=== PATIENT | female | born 1965 | race Caucasian/White ===

== ENCOUNTER → 2017-05-19 | Day surgery (SDC) | payer BC ==
[~2017-05-19] MED LIST: BUPIVACAINE HCL 0.5% INJ 30 ML VIAL INJ ONE; FENTANYL CITRATE/PF 100MCG/2 ML INJ ONE; IOPAMIDOL 610MG/1ML 300 MG/ML VIAL IV ONE; JINTELI 1 MG-51 EACH PO; LEXAPRO10 MG PO; LIDOCAINE HCL 1% 30ML-PF VIAL ONE; LIDOCAINE HCL 2% LOCAL INJ 5 ML SDV VIAL INJ ONE; MIDAZOLAM HCL 2 MG/2 ML VIAL ONE; PROPOFOL IV EMULSION 10 MG/ML 20 ML VIAL ONE; TRIAMCINOLONE ACET 40 MG/ML VIAL ONE; ULTRAM 50MG50 MG PO
--- NOTE | 2017-05-19 15:56 | Operative Report ---
DATE OF PROCEDURE: May 19, 2017 TIGHTENER: None. PREOPERATIVE DIAGNOSIS: Osteoarthritis, left hip. POSTOPERATIVE DIAGNOSIS: Osteoarthritis, left hip. PROCEDURE: Left hip fluoroscopic-guided injection. INDICATIONS: The patient is a 52-year-old lady who has long-standing arthritis of her left hip as well as lower lumbar spondylosis with nerve root entrapment. We have discussed the findings and options. We would like to determine which area is the source of her primary discomfort. The risks and benefits of a fluoroscopic-guided left hip injection have been explained. She states she understands and wishes to proceed. DESCRIPTION OF PROCEDURE: The patient was brought to the procedure room and place and given a MAC anesthetic. Her left hip was prepped and draped in a sterile manner. A preoperative time out was performed. A C-arm image intensifier was used to assist in placing a spinal needle into the hip joint. A small amount of synovial fluid was aspirated. Positioning of the needle was further confirmed with a small injection of radiopaque dye. A mixture of 10 mL of half percent Marcaine and 40 mg of Depo-Medrol were then injected into the hip. The needle was retrieved and a Band-Aid was applied. The patient was transported to the recovery room in stable condition. There was no blood loss and all needle and sponge counts were correct. Job#: [id number]
== END | disposition home or self-care (01) ==
LOC: OR 08:35
PROVIDERS: ATTEND Specialist
DX: M16.12 Unilateral primary osteoarthritis, left hip (principal); M47.16 Other spondylosis with myelopathy, lumbar region; K25.9 Gastric ulcer, unspecified as acute or chronic, without hemorrhage or perforation; F17.210 Nicotine dependence, cigarettes, uncomplicated; Z01.810 Encounter for preprocedural cardiovascular examination
CPT/HCPCS: 20610; 76000; 93005; J2001 ×2; J2250; J3301; Q9967

== ENCOUNTER 2017-07-20 07:38 | Inpatient (IN) | payer BC ==
[2017-07-17 10:37] LABS: BASOPHILS % 0.4 % (0.0-1.0); EOSINOPHILS # (AUTO) 0.1 (0.0-0.4); EOSINOPHILS % 1.2 % (0.0-6.0); HEMATOCRIT 45.1 % (34.2-44.1); LYMPHOCYTES # (AUTO) 2.5 (1.0-3.2); LYMPHOCYTES % 26.3 % (18.0-39.1); MEAN CORPUSCULAR HEMOGLOBIN 32.1 pg (28-32); MEAN CORPUSCULAR HGB CONC 33.3 g/dL (31-35); MEAN CORPUSCULAR VOLUME 96.6 fL (81-99); MONOCYTES # (AUTO) 0.9 (0.2-0.8); MONOCYTES % 9.5 % (4.4-11.3); NEUTROPHILS # (AUTO) 5.9 (2.1-6.9); NEUTROPHILS % 62.4 % (38.7-80.0); PLATELET COUNT 261 x10e3/uL (140-360); RED BLOOD COUNT 4.67 x10e6/uL (3.6-5.1); RED CELL DISTRIBUTION WIDTH 13.4 % (11.7-14.4)
--- NOTE | 2017-07-17 11:14 | Diagnostic Imaging Report ---
PROCEDURE: Frontal and lateral views of the chest. COMPARISON: None. INDICATIONS: PRE OPERATIVE CHEST X-RAY FOR HIP SURGERY FINDINGS: Lines/tubes: None. Lungs: The lungs are well inflated and clear. There is no evidence of pneumonia or pulmonary edema. Pleura: There is no pleural effusion or pneumothorax. Heart and mediastinum: The heart and the mediastinum are normal. Bones: No acute bony abnormality. Cervical spine fusion hardware. IMPRESSION: 1. No acute cardiopulmonary disease. Dictated by: Humza Demarco M.D. on 07/17/2017 at 11:13 Electronically approved by: Humza Demarco M.D. on 07/17/2017 at 11:13
[~2017-07-20] VITALS: Ht 152.4 cm; Wt 49.9 kg
[~2017-07-20 07:38] MED LIST changes: -BUPIVACAINE HCL 0.5% INJ 30 ML VIAL INJ ONE; +CEFAZOLIN SOD 2 GM/D5W 50ML 50 ML IV ONE; +CELECOXIB 200 MG CAP ONE; +DEXAMETHASONE SOD PHOS 10 MG/1 ML VIAL ONE; -FENTANYL CITRATE/PF 100MCG/2 ML INJ ONE; +GABAPENTIN 300 MG CAP ONE; -IOPAMIDOL 610MG/1ML 300 MG/ML VIAL IV ONE; -LIDOCAINE HCL 1% 30ML-PF VIAL ONE; -LIDOCAINE HCL 2% LOCAL INJ 5 ML SDV VIAL INJ ONE; -MIDAZOLAM HCL 2 MG/2 ML VIAL ONE; -PROPOFOL IV EMULSION 10 MG/ML 20 ML VIAL ONE; +ROPIVACAINE 246.25 MG, EPINEPHRINE HCL 1:1000 0.5 MG, CLONIDINE HCL 0.08 MG, KETOROLAC ... INJ ONE; -TRIAMCINOLONE ACET 40 MG/ML VIAL ONE
--- OUTSIDE RECORDS SUMMARY | 2017-07-20 07:40 | XMS REPORT ---
Author Author [facility] Address Unknown Phone Unavailable Care Team Providers Care Ethnology Teacher Name Role Phone ZARINA MENDIOLA Unavailable Unavailable Problems This patient has no known problems. Allergies, Adverse Reactions, Alerts This patient has no known allergies or adverse reactions. Medications This patient has no known medications. Results Test Description Test Time Test Comments Text Results Atomic Results Result Comments CHEST 2 VIEWS [place] [address] Patient Name: YAKELIN BUTT MR #: [id number] : 1965 Age/Sex: 52/F Req #: [id number] Adm Physician: Ordered by: ZARINA MENDIOLA MD Report #: [id number] Location: OR Room/Bed: Procedure: [id number] DX/CHEST 2 VIEWS Exam Date: 07/17/17 Exam Time: 1040 REPORT STATUS: Signed PROCEDURE: Frontal and lateral views of the chest. COMPARISON: None. INDICATIONS: PRE OPERATIVE CHEST X- RAY FOR HIP SURGERY FINDINGS: Lines/tubes: None. Lungs: The lungs are well inflated and clear. There is no evidence of pneumonia or pulmonary edema. Pleura: There is no pleural effusion or pneumothorax. Heart and mediastinum: The heart and the mediastinum are normal. Bones: No acute bony abnormality. Cervical spine fusion hardware. IMPRESSION: 1. No acute cardiopulmonary disease. Dictated by: Humza Demarco M.D. on 07/17/2017 at 11:13 Electronically approved by: Humza Demarco M.D. on 07/17/2017 at 11:13 Dictated By: HUMZA DEMARCO MD [id number] Transcribed By: EDDIE on 07/17/17 1113 COPY TO: ZARINA MENDIOLA MD
[2017-07-20] MEDS ORDERED: BUPIVACAINE 7.5MG/ML /DEXTROSE 82.5MG/ML 2 ML AMP INJ ONE (07:50)
[2017-07-20] MEDS ORDERED: TRANEXAMIC ACID 1,000 MG/10 ML ML ONE (08:13)
[2017-07-20] MEDS ORDERED: BACITRACIN 50,000 UNIT VIAL ONE (08:13)
[2017-07-20] MEDS ORDERED: HYDROGEN PEROXIDE 120 ML BTL ONE (08:13)
[2017-07-20] MEDS ORDERED: MUPIROCIN 2% OINT 22 GM TUBE ONE (08:13)
[2017-07-20] MEDS ORDERED: SODIUM CHLORIDE 0.9% 1000ML 1,000 ML IV SCH (10:20)
[2017-07-20] MEDS ORDERED: DIPHENHYDRAMINE HCL INJ 50 MG/ML VIAL IM/IV PRN (10:30)
[2017-07-20] MEDS ORDERED: ONDANSETRON HCL INJ 2 MG/ML VIAL IV PRN (10:30)
[2017-07-20] MEDS ORDERED: DOCUSATE SODIUM 100 MG CAP PO PRN (10:30)
[2017-07-20] MEDS ORDERED: KETOROLAC TROMETHAMINE 30 MG/ML VIAL IV PRN (10:30)
[2017-07-20] MEDS ORDERED: ACETAMINOPHEN 650 MG SUPP PR PRN (10:30)
[2017-07-20] MEDS ORDERED: PROMETHAZINE HCL (IM) 25 MG/ML VIAL IM PRN (10:30)
--- NOTE | 2017-07-20 11:27 | Diagnostic Imaging Report ---
PROCEDURE:X-RAY PELVIS, AP VIEW COMPARISON:None. INDICATIONS:POST-OP ON LEFT HIP FINDINGS: Post-operative changes related to left hip arthroplasty including soft tissue swelling, subcutaneous emphysema, and overlying skin bernie. No evidence of hardware fracture. There are no fractures, dislocations, lytic or blastic lesions. The bones are well-mineralized. CONCLUSION: Left hip arthroplasty without complication. Dictated by: Galo Portillo M.D. on 07/20/2017 at 11:27 Electronically approved by: Galo Portillo M.D. on 07/20/2017 at 11:27
[2017-07-20] MEDS: ACETAMINOPHEN 1000 MG/100 ML IV SCH ×2 (12:00→15:56)
--- NOTE | 2017-07-20 13:54 | Operative Report ---
DATE OF PROCEDURE: July 20, 2017 STATION WORKER: Cesar Peña PA-C The patient was brought to the operating room for induction of anesthesia. Throughout this case, my PA's assistance was necessary for retraction of soft tissue and positioning of the extremity. This allows for efficient and technically successful execution of the operation and is considered medically necessary. PREOPERATIVE DIAGNOSIS: Osteoarthritis left hip. POSTOPERATIVE DIAGNOSIS: Osteoarthritis left hip. PROCEDURE: Left total hip arthroplasty. INDICATIONS: The patient is a 52-year-old lady who has advanced osteoarthritis of her left hip. She has failed conservative management and would like to proceed with a left total hip replacement. The risks and benefits of the procedure have been discussed at length. All of her questions been answered. She states she understands and wishes to proceed. DESCRIPTION OF PROCEDURE: The patient was brought to the operating room and placed under spinal anesthetic. She was positioned in the right lateral decubitus position. Her left hip was prepped and draped in a sterile manner. A preoperative time out was performed. A limited incision posterior approach was made to the left hip. Hemostasis was obtained with electrocautery. Care was taken to avoid any injury to the sciatic nerve. A portion of the short external rotators and the posterior capsule were released. The hip was dislocated, and an oscillating saw was used to resect the femoral head. Complete loss of articular cartilage was noted. Acetabular retractors were placed, and the true floor of the acetabulum was established with a 44 mm reamer. The socket was then sequentially reamed up to 51 mm. Hemispherical bleeding cancellous bone was accomplished. The hip was thoroughly irrigated with a shower-tip pulsatile lavage. A [employer] OsseoTi 52 mm outer diameter socket was then impacted into place. Fixation was augmented with a single 20 mm screw placed into the ilium. A highly crosslinked polyethylene liner was then seated into place. Care was taken to make sure that there was no evidence of soft-tissue interposition. A portion of a 100 mL premixed pericapsular YAHIR injection was placed into the deep soft tissue. The socket was packed with a moistly soaked lap sponge, and attention was directed towards the proximal femur. A box-cutting osteotome and taper pin reamer were used to establish entry to the femoral canal. The [employer] Taperloc broaches were trialed. A number 9 standard stem had good fill and stability in the canal. Trial reductions were performed. I had elected to use a 32 mm inner diameter liner to increase the polyethylene thickness. A standard 32 mm head was felt to provide appropriate soft-tissue balancing, range of motion and stability. The trial implants were removed. The hip was further irrigated with a pulsatile lavage. The implants were seated, and a final reduction was performed. The remainder of the pericapsular injection was placed into the more superficial soft tissue. The posterior capsule was carefully closed. The piriformis had been preserved and had never been released. The tensor fascia was then closed with interrupted number 2 Ethibond. The skin was closed with subcuticular Vicryl and bernie. She was returned to the supine position and transported to the recovery room in stable condition. Blood loss was approximately 75 mL, and all needle and sponge counts were correct. Job#: [id number] KEVIN
[2017-07-20] MEDS ORDERED: CEFAZOLIN SOD 1 GM/NS 50ML 50 ML IV SCH (14:00)
[2017-07-20 14:07] VITALS: BP 105/50
[2017-07-20] MEDS ORDERED: MIDAZOLAM HCL 2 MG/2 ML VIAL ONE (14:53)
[2017-07-20] MEDS ORDERED: FENTANYL CITRATE/PF 100MCG/2 ML INJ ONE (14:53)
[2017-07-20] MEDS ORDERED: LIDOCAINE HCL 2% LOCAL INJ 5 ML SDV VIAL INJ ONE (15:14)
[2017-07-20] MEDS ORDERED: ONDANSETRON HCL INJ 2 MG/ML VIAL ONE (15:14)
[2017-07-20] MEDS ORDERED: PROPOFOL IV EMULSION 10 MG/ML 20 ML VIAL ONE (15:14)
[2017-07-20] MEDS ORDERED: DEXAMETHASONE SOD PHOS INJ 4 MG/ML VIAL ONE (15:14)
[2017-07-20] MEDS: ASPIRIN 325 MG TAB PO SCH (16:00)
[2017-07-20] MEDS: CELECOXIB 100 MG CAP PO SCH (16:00)
[2017-07-20 16:56] VITALS: BP 92/55
[2017-07-20] MEDS: CEFAZOLIN SOD 1 GM VIAL IV SCH (17:00)
[2017-07-20] MEDS: HYDROCODONE/APAP 5MG-325MG TAB PO PRN ×2 (17:50→21:46)
[2017-07-20 20:00] VITALS: BP 99/55
[2017-07-20] MEDS ORDERED: ZOLPIDEM TARTRATE 5 MG TAB PO PRN (21:00)
[2017-07-21] VITALS: BP 113/58
[2017-07-21] MEDS: CEFAZOLIN SOD 1 GM VIAL IV SCH ×2 (00:51→09:30)
[2017-07-21] MEDS: HYDROCODONE/APAP 7.5MG-325MG 1 EA TAB PO PRN ×2 (05:45→09:55)
[2017-07-21] MEDS: ACETAMINOPHEN 1000 MG/100 ML IV SCH ×2 (05:55)
[2017-07-21 06:48] LABS: HEMATOCRIT 35.5 % (34.2-44.1)
[2017-07-21 06:55] LABS: HEMOGLOBIN 12.1 g/dL (12.0-16.0)
[2017-07-21 08:00] VITALS: BP 102/58
[2017-07-21] MEDS: CELECOXIB 100 MG CAP PO SCH (09:30)
[2017-07-21] MEDS: ASPIRIN 325 MG TAB PO SCH (09:30)
[2017-07-21] MEDS ORDERED: ASPIRIN325 MG PO (10:17)
[2017-07-21] MEDS ORDERED: ACETAMINOPHEN 1000 MG/100 ML IV PRN (10:30)
[2017-07-21 12:00] VITALS: BP 97/51
[2017-07-21] MEDS ORDERED: CELECOXIB 200 MG CAP PO SCH (17:00)
== END 2017-07-21 13:18 | disposition home health service (06) | DRG 470 ==
LOC: OR 07:38 → MED/SURG 11:31
PROVIDERS: ADMIT Specialist; ATTEND Specialist
PROC: 0SRB0JZ Replacement of Left Hip Joint with Synthetic Substitute, Open Approach (ICD-10-PCS; principal; 2017-07-20 08:55)
DX: M16.12 Unilateral primary osteoarthritis, left hip (principal); M47.16 Other spondylosis with myelopathy, lumbar region; K21.9 Gastro-esophageal reflux disease without esophagitis; Z79.82 Long term (current) use of aspirin
CPT/HCPCS: 36415; 71046; 72170; 85014; 85018; 85025; 86850; 86900; 86920; J0171; J0690; J1100; J1885; J2001; J2250; J2405; J2795

== ENCOUNTER 2017-12-17 10:45 | Outpatient (RCR) | payer BC ==
[~2017-12-17 10:45] MED LIST changes: +ASPIRIN325 MG PO; -CEFAZOLIN SOD 2 GM/D5W 50ML 50 ML IV ONE; -CELECOXIB 200 MG CAP ONE; -DEXAMETHASONE SOD PHOS 10 MG/1 ML VIAL ONE; -GABAPENTIN 300 MG CAP ONE; -ROPIVACAINE 246.25 MG, EPINEPHRINE HCL 1:1000 0.5 MG, CLONIDINE HCL 0.08 MG, KETOROLAC ... INJ ONE
== END 2017-12-22 ==
LOC: PT 10:45
PROVIDERS: ATTEND Specialist
DX: M75.42 Impingement syndrome of left shoulder (principal)

== ENCOUNTER 2018-01-21 11:00 | Outpatient (RCR) | payer BC | END 2018-01-22 | LOC: PT 11:00 | PROVIDERS: ATTEND Specialist | DX: M75.42 Impingement syndrome of left shoulder (principal); M25.512 Pain in left shoulder; M62.81 Muscle weakness (generalized) | CPT/HCPCS: 97139 ==

== ENCOUNTER 2018-01-28 10:59 | Outpatient (RCR) | payer BC | END 2018-02-21 | LOC: PT 10:59 | PROVIDERS: ATTEND Specialist | DX: M75.42 Impingement syndrome of left shoulder (principal); M62.81 Muscle weakness (generalized); M25.512 Pain in left shoulder ==

== ENCOUNTER 2018-03-25 08:02 | Observation (INO) | payer BC ==
[2018-03-24 14:13] LABS: BASOPHILS % 0.4 % (0.0-1.0); EOSINOPHILS # (AUTO) 0.2 (0.0-0.4); EOSINOPHILS % 1.5 % (0.0-6.0); HEMATOCRIT 45.7 % (34.2-44.1); HEMOGLOBIN 15.2 g/dL (12.0-16.0); LYMPHOCYTES # (AUTO) 2.9 (1.0-3.2); LYMPHOCYTES % 26.1 % (18.0-39.1); MEAN CORPUSCULAR HEMOGLOBIN 31.3 pg (28-32); MEAN CORPUSCULAR HGB CONC 33.3 g/dL (31-35); MONOCYTES # (AUTO) 1.3 (0.2-0.8); MONOCYTES % 11.3 % (4.4-11.3); NEUTROPHILS # (AUTO) 6.7 (2.1-6.9); NEUTROPHILS % 60.5 % (38.7-80.0); PLATELET COUNT 244 x10e3/uL (140-360); RED BLOOD COUNT 4.86 x10e6/uL (3.6-5.1); RED CELL DISTRIBUTION WIDTH 12.2 % (11.7-14.4)
[2018-03-24 14:27] LABS: INR 0.84; PARTIAL THROMBOPLASTIN TIME 25.1 seconds (23.8-35.5); PROTHROMBIN TIME 12.3 seconds (11.9-14.5)
[2018-03-24 14:35] LABS: ANION GAP 10.8 mmol/L (8-16); BLOOD UREA NITROGEN 12 mg/dL (7-26); BUN/CREATININE RATIO 15 (6-25); CALCIUM 10.1 mg/dL (8.4-10.2); CARBON DIOXIDE 32 mmol/L (22-29); CHLORIDE 101 mmol/L (98-107); CREATININE, SERUM 0.78 mg/dL (0.57-1.11); EST GLOMERULAR FILTRATION RATE > 60 ML/MIN (60-); GLUCOSE 107 mg/dL (74-118); POTASSIUM 3.8 mmol/L (3.5-5.1); SODIUM 140 mmol/L (136-145)
--- NOTE | 2018-03-24 15:05 | Diagnostic Imaging Report ---
EXAMINATION: PA and lateral views of the chest. COMPARISON: None CLINICAL HISTORY: Preoperative study for lumbar spine surgery DISCUSSION: Lungs are well-inflated. No focal consolidation, pleural effusion, or pneumothorax. Cardiomediastinal contour and pulmonary vasculature are within normal limits. No acute osseous abnormality. Cervical spine fusion hardware partially visualized. IMPRESSION: No acute cardiopulmonary abnormalities. Signed by: Dr. Timi Allen M.D. on 03/24/2018 3:02 PM
[~2018-03-25] VITALS: Ht 152.4 cm; Wt 70.5 kg
[2018-03-25] VITALS (7 sets, daily range): BP systolic 113–130; BP diastolic 65–79
[~2018-03-25 08:02] MED LIST changes: +ACETAMINOPHEN 1000 MG/100 ML 100 ML IV ONE; +BACITRACIN 50,000 UNIT VIAL ONE; +BUPIVACAINE 0.5%/EPI 30 ML SDV INJ ONE; +GELATIN SPONGE 12-7MM ONE; +LIDOCAINE HCL (LTA) 4 ML SOLN ONE; +METAXALONE800 MG PO; +THROMBIN FOR SOLN 5,000 UNIT VIAL ONE
[2018-03-25] MEDS ORDERED: CEFAZOLIN SOD 1 GM VIAL ONE (08:35)
[2018-03-25] MEDS ORDERED: CARISOPRODOL 350 MG TAB PO PRN (11:30)
[2018-03-25] MEDS ORDERED: MORPHINE SULFATE 5 MG/ML VIAL IM PRN (11:30)
[2018-03-25] MEDS ORDERED: ZOLPIDEM TARTRATE 5 MG TAB PO PRN (11:30)
[2018-03-25] MEDS ORDERED: OXYCODONE/ACETAMINOPHEN 5-325 1 EACH TABLET PO PRN (11:30)
[2018-03-25] MEDS ORDERED: MAGNESIUM/ALUMINUM/SIMETHICONE 30 ML UDC PO PRN (11:30)
[2018-03-25] MEDS ORDERED: PROMETHAZINE HCL (IM) 25 MG/ML VIAL IM PRN (11:30)
[2018-03-25] MEDS ORDERED: CEPACOL SORE THROAT LOZENGES PO PRN (11:30)
[2018-03-25] MEDS ORDERED: ONDANSETRON HCL INJ 2 MG/ML VIAL IV PRN (11:30)
[2018-03-25] MEDS ORDERED: ACETAMINOPHEN 325 MG TAB PO PRN (11:30)
--- NOTE | 2018-03-25 11:58 | Diagnostic Imaging Report ---
EXAM: lumbar spine, 2 view, AP and supine lateral COMPARISON: None FINDINGS: Two wires or markers are noted overlying the L4 vertebral body level. Vertebral body heights are preserved without evidence of fracture. Alignment is unremarkable. Moderate degenerative disc changes and severe facet degenerative changes, most pronounced at L4-L5 and L5-S1. Likely bony neural foraminal stenosis at L5-S1. Partially seen hip arthroplasty changes. IMPRESSION: Two wires or markers overlie the L4 vertebral body level. Moderate degenerative disc and severe facet degenerative changes of the lumbar spine as above. Signed by: Dr. Ehsan Ahn MD on 03/25/2018 11:55 AM
--- NOTE | 2018-03-25 11:59 | Diagnostic Imaging Report ---
EXAM: lumbar spine, 2 view, AP and supine lateral COMPARISON: Lumbar spine radiographs 03/25/18 at 915 AM. FINDINGS: A single marker is seen overlying the posterior aspect of the L4 posterior elements. Vertebral body heights are preserved without evidence of fracture. Alignment is unremarkable. Moderate degenerative disc changes and severe facet degenerative changes, most pronounced at L4-L5 and L5-S1. Likely bony neural foraminal stenosis at L5-S1. Partially seen hip arthroplasty changes. IMPRESSION: Marker posterior to the L4 posterior elements. Moderate degenerative disc and severe facet degenerative changes of the lumbar spine as above. Signed by: Dr. Ehsan Ahn MD on 03/25/2018 11:56 AM
--- NOTE | 2018-03-25 13:42 | Operative Report ---
DATE OF PROCEDURE: March 25, 2018 PREOPERATIVE DIAGNOSIS: Left L3-4 and L4-5 lateral recess stenosis with radiculopathy, M48.062. POSTOPERATIVE DIAGNOSIS: Left L3-4 and L4-5 lateral recess stenosis with radiculopathy, M48.062. PROCEDURES 1. Left L3-4 laminotomy, medial facetectomy, and microsurgical lateral recess decompression, 40168. 2. Left L4-5 laminotomy, medial facetectomy and microsurgical lateral recess decompression, 37732. ANESTHESIA: General. INDICATIONS: Patient is a 53-year-old woman who presents with intractable radicular pain in the left leg and was found to have lateral recess stenosis due to facet and ligamentous hypertrophy on the left side at L3-4 and L4-5. The patient was taken to the operating room for microsurgical decompression of these 2 segments. PROCEDURE: After the induction of general anesthesia, the patient was placed on the operating table in prone position over a Jean Claude frame. Lumbar region was prepped and draped in sterile fashion. The fluoroscopic C-arm was positioned in cross-table lateral orientation. A preoperative x-ray was obtained. The lumbar region was prepped and draped in a sterile fashion. A small midline incision was created. Lumbar fascia was opened to the left of the midline, and a subperiosteal dissection was carried out to expose the left side of the L3, L4 and L5 laminae and the medial aspect of the facet joints. The ligamentum flavum was resected. A high-speed drill equipped with a esha bur was used to drill the inferior aspect of the lamina of L3, the medial rim of the L3-4 facet joint and the superior rim of the lamina of L4. The markedly hypertrophic ligamentum flavum was resected. The dural sac and the L4 traversing nerve roots were fully exposed and decompressed. Attention was directed to the L4-5 segment. In a similar fashion, the high-speed drill was used to drill the inferior aspect of the lamina of L4, the medial rim of the L4-L5 facet joint and superior aspect of the lamina of L5. The ligamentum flavum was resected, and the dural sac and the L5 traversing nerve root were fully exposed and decompressed. Meticulous hemostasis was secured. The lumbar fascia was closed with #0 Vicryl sutures. The subcutaneous layer was closed with 2-0 Vicryl sutures. The skin was closed with 3-0 Monocryl sutures in subcuticular fashion. Steri-Strips and dressing were applied. The patient was awakened, extubated and taken to the postanesthesia care unit in stable condition. No intraoperative complications were encountered. Estimated blood loss was 10 mL. Job#: [id number]
[2018-03-25] MEDS ORDERED: CEFAZOLIN SOD 1 GM/D5W 50ML 50 ML IV SCH (14:00)
[2018-03-25] MEDS: LACTATED RINGER'S 1,000 ML IV SCH ×2 (14:38→20:24)
[2018-03-25] MEDS ORDERED: LIDOCAINE HCL 2% LOCAL INJ 5 ML SDV VIAL INJ ONE (15:25)
[2018-03-25] MEDS ORDERED: MIDAZOLAM HCL 2 MG/2 ML VIAL ONE (15:25)
[2018-03-25] MEDS ORDERED: PROPOFOL IV EMULSION 10 MG/ML 20 ML VIAL ONE (15:25)
[2018-03-25] MEDS ORDERED: DEXAMETHASONE SOD PHOS INJ 4 MG/ML VIAL ONE (15:25)
[2018-03-25] MEDS ORDERED: NEOSTIGMINE 5 MG/5ML SYR ONE (15:25)
[2018-03-25] MEDS ORDERED: ONDANSETRON HCL INJ 2 MG/ML VIAL ONE (15:25)
[2018-03-25] MEDS ORDERED: GLYCOPYRROLATE INJ 1MG/ 5 ML SYR ONE (15:25)
[2018-03-25] MEDS ORDERED: EPHEDRINE SULFATE INJ 50 MG/10 ML SYR ONE (15:25)
[2018-03-25] MEDS ORDERED: FENTANYL CITRATE/PF 100MCG/2 ML INJ ONE (15:25)
[2018-03-25] MEDS ORDERED: SEVOFLURANE INHAL SOLN 250 ML PEN BTL ONE (15:25)
[2018-03-25] MEDS ORDERED: ROCURONIUM BROMIDE 10 MG/ML 5ML VIAL ONE (15:25)
[2018-03-25] MEDS: HYDROMORPHONE 2MG/ML 2 MG/ML ML IV PRN ×2 (15:39→20:23)
[2018-03-25] MEDS: CEFAZOLIN SOD 1 GM VIAL IV SCH (16:11)
[2018-03-25] MEDS: METAXALONE 800 MG TAB PO SCH ×2 (16:12→21:29)
[2018-03-26] MEDS: CEFAZOLIN SOD 1 GM VIAL IV SCH ×2 (01:12→08:07)
[2018-03-26 01:20] VITALS: BP 98/53
[2018-03-26] MEDS: HYDROMORPHONE 2MG/ML 2 MG/ML ML IV PRN (01:21)
[2018-03-26 05:00] VITALS: BP 115/72
[2018-03-26 08:00] VITALS: BP 98/53
[2018-03-26 08:32] VITALS: BP 98/53
[2018-03-26] MEDS ORDERED: NORCO 7.5-3251 EACH PO (08:47)
[2018-03-26] MEDS ORDERED: [UNRECOGNIZED DRUG - OTHER] PO SCH ×2 (09:00)
[2018-03-26] MEDS ORDERED: ETHINYL ESTRADIOL PO SCH ×2 (09:00)
[2018-03-26] MEDS ORDERED: ESCITALOPRAM OXALATE 10 MG TAB PO SCH (09:00)
== END 2018-03-26 10:12 | disposition home or self-care (01) ==
LOC: OR 08:02 → PACU V 11:25 → IMCU 12:22
PROVIDERS: ADMIT Neurological Surgery; ATTEND Neurological Surgery
DX: M48.062 Spinal stenosis, lumbar region with neurogenic claudication (principal); Z01.810 Encounter for preprocedural cardiovascular examination; Z01.812 Encounter for preprocedural laboratory examination; Z01.811 Encounter for preprocedural respiratory examination; Z87.11 Personal history of peptic ulcer disease; R12 Heartburn; M19.90 Unspecified osteoarthritis, unspecified site; Z96.642 Presence of left artificial hip joint
CPT/HCPCS: 36415; 63047; 63048; 71046; 72020; 80048; 85025; 85610; 85730; 86850; 86900; 88304; 88311; 93005; G0378 ×2; J0131; J0690 ×2; J1100; J1170 ×2; J2001; J2250; J2405; J2704; J3490

== ENCOUNTER → 2018-04-23 | Outpatient (RCR) | payer BC ==
[~2018-04-23] MED LIST changes: -ACETAMINOPHEN 1000 MG/100 ML 100 ML IV ONE; -BACITRACIN 50,000 UNIT VIAL ONE; -BUPIVACAINE 0.5%/EPI 30 ML SDV INJ ONE; -GELATIN SPONGE 12-7MM ONE; -LIDOCAINE HCL (LTA) 4 ML SOLN ONE; +NORCO 7.5-3251 EACH PO; -THROMBIN FOR SOLN 5,000 UNIT VIAL ONE
== END ==
LOC: PT 04-20 14:06
PROVIDERS: ATTEND Neurological Surgery
DX: M48.062 Spinal stenosis, lumbar region with neurogenic claudication (principal)

== ENCOUNTER → 2018-05-24 | Outpatient (RCR) | payer BC | LOC: PT 04-26 09:02 | PROVIDERS: ATTEND Neurological Surgery | DX: M48.062 Spinal stenosis, lumbar region with neurogenic claudication (principal); M54.5 Low back pain; M25.552 Pain in left hip; M62.81 Muscle weakness (generalized); R26.89 Other abnormalities of gait and mobility ==

== ENCOUNTER 2018-06-22 08:00 | Outpatient (RCR) | payer BC | END 2018-06-24 | LOC: PT 08:00 | PROVIDERS: ATTEND Neurological Surgery | DX: M48.062 Spinal stenosis, lumbar region with neurogenic claudication (principal); M54.5 Low back pain; M62.81 Muscle weakness (generalized); R26.89 Other abnormalities of gait and mobility; M25.532 Pain in left wrist | CPT/HCPCS: 97139 ==

== ENCOUNTER → 2018-11-01 | Day surgery (SDC) | payer BC ==
[~2018-11-01] MED LIST changes: +ALIGN4 MG; +CEFAZOLIN SOD 1 GM/NS 50ML 50 ML IV ONE; +CYSTEX TABLET1 EACH; +DEXAMETHASONE SOD PHOS INJ 4 MG/ML VIAL ONE; +EPINEPHRINE HCL 1:1000 1ML 1 MG/ML AMP ONE; +FENTANYL CITRATE/PF 100MCG/2 ML INJ ONE; +GABAPENTIN300 MG PO; +GLYCOPYRROLATE INJ 1MG/ 5 ML SYR ONE; +LIDOCAINE 2% /EPINEPHRINE 20 ML SDV INJ ONE; +LIDOCAINE HCL 2% LOCAL INJ 5 ML SDV VIAL INJ ONE; +MIDAZOLAM HCL 2 MG/2 ML VIAL ONE; +NEOSTIGMINE 5 MG/5ML SYR ONE; +NEXIUM40 MG PO; +ONDANSETRON HCL INJ 2MG/ML 2ML 2 MG/ML VIAL ONE; +PEPCID20 MG; +PERCOCET 10-321 EACH; +PROPOFOL IV EMULSION 10 MG/ML 20 ML VIAL ONE; +ROCURONIUM BROMIDE 10 MG/ML 5ML VIAL ONE; +ROPIVACAINE 0.5% 5 MG/ML 30 ML SDV ONE; +SEVOFLURANE INHAL SOLN 250 ML PEN BTL ONE
[2018-11-01 13:17] VITALS: BP 117/70
--- NOTE | 2018-11-01 21:36 | Operative Report ---
DATE OF PROCEDURE: 11/01/2018 SURGEON: Timi Lehman MD NUCLEAR REACTOR ENGINEER: Cesar Peña, certified PA. PREOPERATIVE DIAGNOSIS: Left shoulder rotator cuff tear. POSTOPERATIVE DIAGNOSIS: Left shoulder rotator cuff tear. PROCEDURES: Left shoulder arthroscopy, subacromial decompression, rotator cuff repair. INDICATIONS: The patient is a 53-year-old female, who has clinic signs and symptoms consistent with a left shoulder rotator cuff tear. The findings and options have been discussed. We plan on diagnostic arthroscopy with repairs as indicated. The risks and benefits have been explained. She states she understands and wishes to proceed. PROCEDURE IN DETAIL: The patient was brought to the operating room and placed under general anesthetic. She received a regional block and prophylactic antibiotics in the holding area. She was positioned in the beach chair position on the shoulder table. Her left upper extremity was prepped and draped in a sterile manner. A preoperative time-out was performed. A standard posterior arthroscopy portal was established. The shoulder was insufflated with sterile saline and systematically inspected. She was noted to have significant amount of synovitis in the shoulder. The biceps tendon was near completely ruptured. There was a large rotator cuff tear that incorporated the entire supraspinatus and infraspinatus. The subscap was remained intact. The glenohumeral surfaces were otherwise well preserved. The scope was placed into the subacromial space. Subacromial bursectomy and bone decompression were performed with an electroblade. The rotator cuff tendon was freed up and mobilized. The greater tuberosity was decorticated. We elected to release the biceps tendon due to the extensive fraying. Staffing Account Manager holes were placed into the articular margin using a bone punch. The [employer] Speed Bridge double row construct system was used. Bioabsorbable suture anchors preloaded with fiber tapes were placed at the articular margin in the greater tuberosity. Nice bone quality was encountered. These were passed through the rotator cuff tendon using a scorpion suture passer. The tendon was on a fair bit of tension. An anterior shuttle portal was established. The FiberTape stitches were used in a front to back and back to front configuration with secondary bioabsorbable suture anchors in the superior lateral humeral cortex. One of the auxiliary stitches was used to augment the repair at the anterior aspect. The tear was under appropriate tension and was nicely apposed to the greater tuberosity. The arthroscopic instruments were then removed. The portal incisions were closed with nylon stitches. A sterile bandage and an UltraSling were applied. The patient was extubated and transported to the recovery room in stable condition. Blood loss was less than 10 mL and all needle and sponge counts were correct. Timi Lehman MD DR/RICK /[id number]
== END | disposition home or self-care (01) ==
LOC: OR 08:43
PROVIDERS: ATTEND Specialist
DX: S46.022A Laceration of muscle(s) and tendon(s) of the rotator cuff of left shoulder, initial encounter (principal); S46.012A Strain of muscle(s) and tendon(s) of the rotator cuff of left shoulder, initial encounter; K21.9 Gastro-esophageal reflux disease without esophagitis; M19.90 Unspecified osteoarthritis, unspecified site; Z80.9 Family history of malignant neoplasm, unspecified; Z83.3 Family history of diabetes mellitus; Z82.49 Family history of ischemic heart disease and other diseases of the circulatory system
CPT/HCPCS: 29826; 29827; C1713 ×3; J0171; J0690; J1100; J2001 ×2; J2250; J2405; J2704; J2795; J3490

== ENCOUNTER 2018-12-21 14:53 | Outpatient (RCR) | payer BC ==
[~2018-12-21 14:53] MED LIST changes: -CEFAZOLIN SOD 1 GM/NS 50ML 50 ML IV ONE; -DEXAMETHASONE SOD PHOS INJ 4 MG/ML VIAL ONE; -EPINEPHRINE HCL 1:1000 1ML 1 MG/ML AMP ONE; -FENTANYL CITRATE/PF 100MCG/2 ML INJ ONE; -GLYCOPYRROLATE INJ 1MG/ 5 ML SYR ONE; -LIDOCAINE 2% /EPINEPHRINE 20 ML SDV INJ ONE; -LIDOCAINE HCL 2% LOCAL INJ 5 ML SDV VIAL INJ ONE; -MIDAZOLAM HCL 2 MG/2 ML VIAL ONE; -NEOSTIGMINE 5 MG/5ML SYR ONE; -ONDANSETRON HCL INJ 2MG/ML 2ML 2 MG/ML VIAL ONE; -PERCOCET 10-321 EACH; +PERCOCET 10-321 EACH PO; -PROPOFOL IV EMULSION 10 MG/ML 20 ML VIAL ONE; -ROCURONIUM BROMIDE 10 MG/ML 5ML VIAL ONE; -ROPIVACAINE 0.5% 5 MG/ML 30 ML SDV ONE; -SEVOFLURANE INHAL SOLN 250 ML PEN BTL ONE
== END 2018-12-22 ==
LOC: PT 14:53
PROVIDERS: ATTEND Specialist
DX: Z47.89 Encounter for other orthopedic aftercare (principal); S46.022D Laceration of muscle(s) and tendon(s) of the rotator cuff of left shoulder, subsequent encounter

== ENCOUNTER 2019-01-20 17:00 | Outpatient (RCR) | payer BC | END 2019-01-22 | LOC: PT 17:00 | PROVIDERS: ATTEND Specialist | DX: Z47.89 Encounter for other orthopedic aftercare (principal); S46.022D Laceration of muscle(s) and tendon(s) of the rotator cuff of left shoulder, subsequent encounter ==

== ENCOUNTER 2019-02-15 16:59 | Outpatient (RCR) | payer BC | END 2019-02-21 | LOC: PT 16:59 | PROVIDERS: ATTEND Specialist | DX: Z47.89 Encounter for other orthopedic aftercare (principal); S46.022D Laceration of muscle(s) and tendon(s) of the rotator cuff of left shoulder, subsequent encounter; M62.81 Muscle weakness (generalized); M25.512 Pain in left shoulder; M25.612 Stiffness of left shoulder, not elsewhere classified | CPT/HCPCS: 97139 ==

== ENCOUNTER → 2019-02-21 | Day surgery (SDC) | payer BC ==
[~2019-02-21] MED LIST changes: +BUPIVACAINE HCL 0.5% 10ML MPF VIAL INJ ONE; +FENTANYL CITRATE/PF 100MCG/2 ML INJ ONE; +IOPAMIDOL 300MG/ML 50ML INFUS..BTL IV ONE; +LIDOCAINE HCL 1% LOCAL INJ 20 ML VIAL ONE; +MIDAZOLAM HCL 2 MG/2 ML VIAL ONE; +TRIAMCINOLONE ACET 40 MG/ML VIAL ONE
--- OUTSIDE RECORDS SUMMARY | 2019-02-21 05:12 | XMS REPORT ---
Author Author Ai Edwards Organization [employer] Address Unknown Phone Unavailable Care Team Providers Care Knowledge Architect Name Role Phone Ai Edwards CP Unavailable Allergies, Adverse Reactions, Alerts Substance Reaction Event Type N.K.D.A. 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 Assessment Pain of left thigh M79.652 Active Assessment Pain in right thigh M79.651 Active Assessment 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 Active Medications Medication Code System Code Instructions Start Date End Date Status Dosage Hydroxychloroquine Sulfate [facility] [place] 2] 15380041814 200 mg orally daily Feb 01, 2019 May 02, 2019 Active 1 tab(s) Flexeril NDC 0 Active not defined Jinteli [facility] [place]NOTE 2] 09024674301 1-5 MG-MCG Orally Once a day Active 1 tablet Escitalopram Oxalate [facility] [place]NOTE 2] 49524989672 10 MG Orally Once a day Active 1 tablet Percocet [facility] [place]NOTE 2] 32825621457 5-325 MG Orally every 6 hrs Active 1 tablet as needed Gabapentin [facility] [place]NOTE 2] 25897114128 300 MG Orally Three times a day Active 1 capsule Acetaminophen-Codeine #3 [facility] [place]NOTE 2] 90896796182 300-30 MG Orally every 6 hrs Active 1 tablet as needed Vital Signs Date/Time: Feb 01, 2019 Height 60 in Blood Pressure Diastolic 66 mm Hg Blood Pressure Systolic 130 mm Hg Weight 132.4 lbs Results No Known Results Summary Purpose [employer] Submission
--- OUTSIDE RECORDS SUMMARY | 2019-02-21 05:12 | XMS REPORT | Continuity of Care Document ---
Author Author [employer] Address Unknown Phone Unavailable Care Team Providers Care Cathodic Protection Technician Name Role Phone [employer] [facility] Unavailable Unavailable Problems Problem Status Onset Date Classification Date Reported Comments Source Lumbago due to displacement of intervertebral disc Active Problem 02/02/2019 Ai Najam Pain in left wrist Active Diagnosis 05/04/2018 Ai Najam Stiffness of left wrist joint Active Diagnosis 05/04/2018 Ai Najam Swelling of joint, wrist, left Active Diagnosis 05/04/2018 Ai Najam Pain in right wrist Active Diagnosis 05/04/2018 Ai Najam Stiffness of right wrist joint Active Diagnosis 05/04/2018 Ai Najam Counseling NOS Active Diagnosis 02/02/2019 Ai Najam Pain of left hand Active Diagnosis 02/02/2019 Ai Najam Pain in right hand Active Diagnosis 02/02/2019 Ai Najam Pain of left thigh Active Diagnosis 02/02/2019 Ai Najam Pain in right thigh Active Diagnosis 02/02/2019 Ai Najam Osteoarthritis involving multiple joints on both sides of body Active Diagnosis 02/02/2019 Ai Najam Inflammatory osteoarthritis Active Diagnosis 02/02/2019 Ai Najam Medications Medication Details Route Status Patient Instructions Ordering Provider Order Date Source Hydroxychloroquine Sulfate 1 tab(s) orally Active 200 mg orally daily Najam 02/01/2019 Ai Najam Flexeril not defined NA Active Najam Ai Najam Jinteli 1 tablet Orally Active 1-5 MG-MCG Orally Once a day Najam Ai Najam Gabapentin 1 capsule Orally Active 300 MG Orally Three times a day Najam Ai Najam Escitalopram Oxalate 1 tablet Orally Active 10 MG Orally Once a day Najam Ai Najam Acetaminophen-Codeine #3 1 tablet as needed Orally Active 300- 30 MG Orally every 6 hrs Najam Ai Najam Percocet 1 tablet as needed Orally Active 5-325 MG Orally every 6 hrs Najam Ai Najam Allergies, Adverse Reactions, Alerts Substance Category Reaction Severity Reaction type Status Date Reported Comments Source N.K.D.A. Adverse Reaction Info Not Available Adverse Reaction 02/01/2019 Ai Najam Immunizations No Data Provided for This Section Results No Data Provided for This Section Pathology Reports No Data Provided for This Section Diagnostic Reports No Data Provided for This Section Consultation Notes No Data Provided for This Section Discharge Summaries No Data Provided for This Section History and Physicals No Data Provided for This Section Vital Signs Vital Sign Value Date Comments Source Height 60 02/01/2019 Ai Najam Diastolic (mm Hg) 66 02/01/2019 Ai Najam Systolic (mm Hg) 130 02/01/2019 Ai Najam Weight 132.4 02/01/2019 Ai Najam Height 60 07/27/2018 Ai Najam Diastolic (mm Hg) 75 07/27/2018 Ai Najam Systolic (mm Hg) 123 07/27/2018 Ai Najam Weight 130.2 07/27/2018 Ai Najam Height 60 05/04/2018 Ai Najam Diastolic (mm Hg) 72 05/04/2018 Ai Najam Systolic (mm Hg) 114 05/04/2018 Ai Najam Weight 122.6 05/04/2018 Ai Najam Height 60 04/29/2018 Ai Najam Diastolic (mm Hg) 70 04/29/2018 Ai Najam Systolic (mm Hg) 134 04/29/2018 Ai Najam Weight 212.0 04/29/2018 Ai Najam Height 60 04/19/2018 Ai Najam Diastolic (mm Hg) 70 04/19/2018 Ai Najam Systolic (mm Hg) 134 04/19/2018 Ai Najam Weight 212.0 04/19/2018 Ai Najam Encounters No Data Provided for This Section Procedures No Data Provided for This Section Assessment and Plan No Data Provided for This Section Plan of Care No Data Provided for This Section Social History No Data Provided for This Section Family History No Data Provided for This Section Advance Directives No Data Provided for This Section Functional Status No Data Provided for This Section
[2019-02-21 08:15] VITALS: BP 106/54
--- NOTE | 2019-02-21 14:13 | Operative Report ---
DATE OF PROCEDURE: 02/21/2019 SURGEON: Timi Lehman MD PREOPERATIVE DIAGNOSIS: Osteoarthritis, right hip with lumbar spondylosis. POSTOPERATIVE DIAGNOSIS: Osteoarthritis, right hip with lumbar spondylosis. PROCEDURE: Fluoroscopic-guided right hip corticosteroid injection. INDICATIONS: The patient is a 54-year-old lady, who has osteoarthritis of her right hip. She has additional ongoing issues in her low back. It is not clear how much of her symptoms are being generated by her hip versus her back. She would like to proceed with a right hip injection. The risks and benefits were explained. She stated she understood and wished to proceed. PROCEDURE IN DETAIL: The patient was brought to the operating room. She was given a MAC anesthetic. Her right hip was prepped and draped in a sterile manner. A preoperative time-out was performed. Using a C-arm image intensifier, an 18-gauge spinal needle was placed into the inferior recess of the right hip. A small amount of radiopaque dye was injected to confirm intra-articular positioning. A mixture of 9 mL of 0.5% Marcaine and 40 mg of Kenalog were then injected into the hip joint. The needle was retrieved and a Band-Aid was applied. A C-arm image showed a complete dilution of the intra-articular radiopaque dye. She was transported to the recovery room in stable condition. There was no blood loss. Timi Lehman MD DR/MODL /[id number]
== END | disposition home or self-care (01) ==
LOC: OR 05:10
PROVIDERS: ATTEND Specialist
DX: M16.11 Unilateral primary osteoarthritis, right hip (principal); M47.816 Spondylosis without myelopathy or radiculopathy, lumbar region; Z96.642 Presence of left artificial hip joint; M96.1 Postlaminectomy syndrome, not elsewhere classified; K21.9 Gastro-esophageal reflux disease without esophagitis; K28.9 Gastrojejunal ulcer, unspecified as acute or chronic, without hemorrhage or perforation; Z01.810 Encounter for preprocedural cardiovascular examination; Z87.891 Personal history of nicotine dependence
CPT/HCPCS: 20610; 77002; 93005; J2250; J3010; J3301; Q9967; J2001

== ENCOUNTER → 2019-10-20 | Day surgery (SDC) | payer BC, OTHER ==
--- NOTE | 2019-10-15 11:42 | Diagnostic Imaging Report ---
EXAMINATION: PA and lateral views of the chest. COMPARISON: Chest 2 views 03/24/2018 CLINICAL HISTORY: Preop for bladder surgery DISCUSSION: Lines/tubes: None. Lungs: The lungs are well inflated and clear. There is no evidence of pneumonia or pulmonary edema. Pleura: There is no pleural effusion or pneumothorax. Heart and mediastinum: Cardiomediastinal silhouette is unremarkable. Pulmonary vasculature is normal. Bones and soft tissues: No acute bony abnormalities. Mild age-appropriate degenerative changes in the thoracic spine IMPRESSION: No acute cardiopulmonary abnormalities. Signed by: Dr. Nico Tate M.D. on 10/15/2019 11:38 AM
[2019-10-15 12:08] LABS: BASOPHILS % 0.7 % (0.0-1.0); EOSINOPHILS # (AUTO) 0.1 (0.0-0.4); EOSINOPHILS % 1.6 % (0.0-6.0); HEMATOCRIT 42.3 % (34.2-44.1); HEMOGLOBIN 13.6 g/dL (12.0-16.0); LYMPHOCYTES # (AUTO) 2.3 (1.0-3.2); LYMPHOCYTES % 38.2 % (18.0-39.1); MEAN CORPUSCULAR HEMOGLOBIN 29.7 pg (28-32); MEAN CORPUSCULAR HGB CONC 32.2 g/dL (31-35); MEAN CORPUSCULAR VOLUME 92.4 fL (81-99); MONOCYTES # (AUTO) 0.8 (0.2-0.8); MONOCYTES % 13.4 % (4.4-11.3); NEUTROPHILS # (AUTO) 2.8 (2.1-6.9); NEUTROPHILS % 45.9 % (38.7-80.0); PLATELET COUNT 290 x10e3/uL (140-360); RED BLOOD COUNT 4.58 x10e6/uL (3.6-5.1)
[2019-10-15 12:40] LABS: ALANINE AMINOTRANSFERASE 20 IU/L (0-55); ALBUMIN 4.1 g/dL (3.5-5.0); ALBUMIN/GLOBULIN RATIO 1.3 (0.8-2.0); ALKALINE PHOSPHATASE 61 IU/L (40-150); BLOOD UREA NITROGEN 12 mg/dL (7-26); BUN/CREATININE RATIO 16 (6-25); CALCIUM 9.8 mg/dL (8.4-10.2); CARBON DIOXIDE 27 mmol/L (22-29); CHLORIDE 104 mmol/L (98-107); CREATININE, SERUM 0.73 mg/dL (0.57-1.11); EST GLOMERULAR FILTRATION RATE > 60 ML/MIN (60-); GLUCOSE 86 mg/dL (74-118); SODIUM 140 mmol/L (136-145)
[~2019-10-20] MED LIST changes: +ACETAMINOPHEN 1000 MG/100 ML IV ONE; +ALIGN4 MG PO; +ALPHA LIPOIC AC50 MG PO; +B COMPLEX1 EACH PO; +B&O 60MG R/S 60 MG SUPP PR ONE; +BACITRACIN 50,000 UNIT VIAL ONE; +BUPIVACAINE 0.25%/EPI 30ML SDV INJ ONE; -BUPIVACAINE HCL 0.5% 10ML MPF VIAL INJ ONE; +CEFAZOLIN SOD 1 GM/NS 50ML 100 ML IV ONE; +DEXAMETHASONE SOD PHOS INJ 4 MG/ML VIAL ONE; +DUEXIS 800-26.1 EACH PO; +EPHEDRINE SULFATE INJ 50 MG/ML VIAL ONE; +ESTROGENS CONJUGATED VAGINAL CR 45 GM TUBE PV ONE; -FENTANYL CITRATE/PF 100MCG/2 ML INJ ONE; +FOLIC ACID PO; +HYDROXYCHLOROQ200 MG PO; -IOPAMIDOL 300MG/ML 50ML INFUS..BTL IV ONE; +KETOROLAC TROMETHAMINE 30 MG/ML VIAL ONE; -LIDOCAINE HCL 1% LOCAL INJ 20 ML VIAL ONE; +LIDOCAINE HCL 2% LOCAL INJ 5 ML SDV VIAL INJ ONE; -MIDAZOLAM HCL 2 MG/2 ML VIAL ONE; +ONDANSETRON HCL INJ 2MG/ML 2ML 2 MG/ML VIAL ONE; +PROPOFOL IV EMULSION 10 MG/ML 20 ML VIAL ONE; +SEVOFLURANE INHAL SOLN 250 ML PEN BTL ONE; -TRIAMCINOLONE ACET 40 MG/ML VIAL ONE
[2019-10-20 14:10] VITALS: BP 123/73
--- NOTE | 2019-10-24 14:38 | Operative Report ---
DATE OF PROCEDURE: 10/20/2019 SURGEON: Ray Deluna MD PREOPERATIVE DIAGNOSES: 1. Stress urinary incontinence. 2. Intrinsic sphincter deficiency. POSTOPERATIVE DIAGNOSES: 1. Stress urinary incontinence. 2. Intrinsic sphincter deficiency. OPERATION PERFORMED: Cystoscopy and pubovaginal mid urethral sling. ANESTHESIOLOGIST: Staff. ANESTHESIA: General. ESTIMATED BLOOD LOSS: 10-20 mL. COUNTS: Sponge, needle count, and instrument count were correct. FINDINGS: Open bladder neck and grade 1 cystocele. Ureteral orifices are normal. No cystoscopy. Rest of the bladder, no tumors or stones. DESCRIPTION OF PROCEDURE: The patient was brought to the operating room and placed under general anesthetic under [facility] Echovirus guidelines. Once that was done, a time-out was obtained. All agreed with the procedure as planned. The patient's legs were placed on stirrups. Genitalia was shaved with jackeline and the lower abdomen, genitalia, and thighs were prepped with Betadine soap and solution and draped in usual manner. A vaginal weighted speculum was placed in. The labia were then sutured with 2-0 silk to keep the introitus open. #16-Vincentian Brito catheter was passed per urethra and the bladder was emptied. Suprapubically, local anesthetic was placed in 0.25% with epinephrine. This was done 1 cm off the midline and 1 cm over the symphysis pubis. After the injection, incision was made approximately a cm and half in length, carried through Denny's fascia all the way to the rectus fascia. Down the rectus fascia, an incision was made using the Bovie and a tunnel with a finger was made by dissecting the lateral aspect of the rectus muscle and Brito into the retropubic space. Dissection was carried all the way down to the endopelvic fascia. This was done both on the right and the left side. At this point, attention was placed to the vagina and an inverted-V was made in the mid urethra and extending it laterally beyond the bladder neck and then lifting up a flap exposing the urethra and the bladder neck itself. At this point, a segment of DermaPure was obtained. The package was opened. The DermaPure was cut into a 1.5 cm strips. There were two strips that I cut. Then, also a piece of Holter probe was cut in the same manner. The Holter probe was sandwiched between the two pieces of DermaPure and they were held together by 2-0 Monocryl. At the ends of these strips, I placed a zero Ethibond suture. I tunneled the track retrograde up to the endopelvic fascia by introducing a tenotomy scissors over my finger to light touch the endopelvic fascia on both the right and the left side and then I perforated the endopelvic fascia. The Hunter needle was then introduced. The eye was seen through the vagina and the Ethibond sutures was placed to the eye and brought in suprapubically both on the right and the left side. I tunneled the right side to the left side through the midline. Attention was placed on the sling until there was sufficient space with a hemostat to allow not to have the pressure upwards on the sling. At that point, the two Ethibond sutures were tied together on the left side over the rectus muscle. Irrigation was made. Bleeding points were electrocoagulated. At this point, the Brito catheter was removed. Cystoscopy was performed with a 12 and 7-degree angle lens. No perforation was identified. At this point, the sutures were tied together and excess Ethibond was cut off. On the suprapubic incisions, the Denny's fascia was closed using 2-0 Monocryl as well as the subcutaneous fat and the subcuticular tissue was approximated using 4-0 Monocryl with Steri-Strips and Dermabond on the skin. In the vagina, 2-0 Monocryl was used single suture and a vaginal packing with Premarin cream was then placed in the vagina removing the weighted speculum. The sutures in the labia were cut off and on the left side a bleeding was seen on the puncture wound and this was electrocoagulated. The urine return of the Brito catheter was clear. B and O suppository was placed in the rectum and the patient was taken to the recovery room in satisfactory condition. I called the told him the satisfactory condition of the . The patient wanted to be discharged the same day and since there was minimal bleeding, she was sent home on tramadol and Keflex. She will be seen in the office within 24 hours to remove the vaginal packing and the Brito catheter will be removed in three days. The patient's was told to call me if there was a problem. MD ROBIN Miller/RICK /[id number]
== END | disposition home or self-care (01) ==
LOC: OR 09:25
PROVIDERS: ATTEND Urology
DX: N39.46 Mixed incontinence (principal); N36.42 Intrinsic sphincter deficiency (ISD); N39.0 Urinary tract infection, site not specified; N81.10 Cystocele, unspecified; M54.9 Dorsalgia, unspecified; M54.2 Cervicalgia; M19.90 Unspecified osteoarthritis, unspecified site; K21.9 Gastro-esophageal reflux disease without esophagitis; K44.9 Diaphragmatic hernia without obstruction or gangrene; F41.9 Anxiety disorder, unspecified
CPT/HCPCS: 36415; 57288; 71046; 80053; 85025; 87635; 93005; C1781; J0131; J0690; J1100; J1885; J2001; J2405; J2704; Q4152

== ENCOUNTER → 2020-07-26 | Outpatient (CLI) | payer BC ==
[~2020-07-26] MED LIST changes: -ACETAMINOPHEN 1000 MG/100 ML IV ONE; -B&O 60MG R/S 60 MG SUPP PR ONE; -BACITRACIN 50,000 UNIT VIAL ONE; -BUPIVACAINE 0.25%/EPI 30ML SDV INJ ONE; -CEFAZOLIN SOD 1 GM/NS 50ML 100 ML IV ONE; -DEXAMETHASONE SOD PHOS INJ 4 MG/ML VIAL ONE; -EPHEDRINE SULFATE INJ 50 MG/ML VIAL ONE; -ESTROGENS CONJUGATED VAGINAL CR 45 GM TUBE PV ONE; -KETOROLAC TROMETHAMINE 30 MG/ML VIAL ONE; -LIDOCAINE HCL 2% LOCAL INJ 5 ML SDV VIAL INJ ONE; -ONDANSETRON HCL INJ 2MG/ML 2ML 2 MG/ML VIAL ONE; -PROPOFOL IV EMULSION 10 MG/ML 20 ML VIAL ONE; -SEVOFLURANE INHAL SOLN 250 ML PEN BTL ONE
[2020-07-26 09:41] LABS: BASOPHILS % 0.5 % (0.0-1.0); EOSINOPHILS # (AUTO) 0.2 (0.0-0.4); EOSINOPHILS % 1.9 % (0.0-6.0); HEMATOCRIT 41.6 % (34.2-44.1); HEMOGLOBIN 13.5 g/dL (12.0-16.0); LYMPHOCYTES # (AUTO) 3.1 (1.0-3.2); LYMPHOCYTES % 37.4 % (18.0-39.1); MEAN CORPUSCULAR HEMOGLOBIN 29.7 pg (28-32); MEAN CORPUSCULAR HGB CONC 32.5 g/dL (31-35); MEAN CORPUSCULAR VOLUME 91.6 fL (81-99); MONOCYTES # (AUTO) 0.8 (0.2-0.8); MONOCYTES % 9.9 % (4.4-11.3); NEUTROPHILS # (AUTO) 4.1 (2.1-6.9); NEUTROPHILS % 50.1 % (38.7-80.0); PLATELET COUNT 256 x10e3/uL (140-360); RED BLOOD COUNT 4.54 x10e6/uL (3.6-5.1); RED CELL DISTRIBUTION WIDTH 12.5 % (11.7-14.4)
== END ==
LOC: DX 11:16 → EDSTATUS 07-31 09:00
PROVIDERS: ATTEND Specialist
DX: Z01.812 Encounter for preprocedural laboratory examination (principal); Z01.818 Encounter for other preprocedural examination; Z20.822 Contact with and (suspected) exposure to COVID-19; M16.11 Unilateral primary osteoarthritis, right hip
CPT/HCPCS: 36415; 85025; 93005; U0002

== ENCOUNTER 2020-08-28 09:41 | Observation (INO) | payer BC ==
[2020-08-23 14:11] LABS: BASOPHILS % 0.3 % (0.0-1.0); EOSINOPHILS % 0.2 % (0.0-6.0); HEMOGLOBIN 14.3 g/dL (12.0-16.0); LYMPHOCYTES # (AUTO) 2.3 (1.0-3.2); LYMPHOCYTES % 25.3 % (18.0-39.1); MEAN CORPUSCULAR HEMOGLOBIN 29.7 pg (28-32); MEAN CORPUSCULAR HGB CONC 32.5 g/dL (31-35); MEAN CORPUSCULAR VOLUME 91.3 fL (81-99); MONOCYTES # (AUTO) 0.8 (0.2-0.8); MONOCYTES % 8.7 % (4.4-11.3); NEUTROPHILS # (AUTO) 5.8 (2.1-6.9); NEUTROPHILS % 65.2 % (38.7-80.0); PLATELET COUNT 269 x10e3/uL (140-360); RED BLOOD COUNT 4.82 x10e6/uL (3.6-5.1); RED CELL DISTRIBUTION WIDTH 12.7 % (11.7-14.4)
[~2020-08-28 09:41] MED LIST changes: +ROPIVACAINE 246.25 MG, EPINEPHRINE HCL 1:1000 1ML 0.5 MG, CLONIDINE HCL 0.08 MG, KETORO... INJ ONE
[2020-08-28] MEDS ORDERED: CEFAZOLIN SOD 1 GM/NS 50ML 100 ML IV ONE (09:47)
[2020-08-28] MEDS ORDERED: CELECOXIB 200 MG CAP ONE (09:47)
[2020-08-28] MEDS ORDERED: GABAPENTIN 300 MG CAP ONE (09:47)
[2020-08-28] MEDS ORDERED: DEXAMETHASONE SOD PHOS 10 MG/1 ML VIAL ONE (09:47)
[2020-08-28] MEDS ORDERED: BUPIVACAINE 7.5MG/ML /DEXTROSE 82.5MG/ML 2 ML AMP INJ ONE (10:30)
[2020-08-28] MEDS ORDERED: SODIUM CHLORIDE 0.9% 500ML 500 ML ONE (10:32)
[2020-08-28] MEDS ORDERED: TRANEXAMIC ACID 1,000 MG/10 ML ML ONE (10:32)
[2020-08-28] MEDS ORDERED: VANCOMYCIN HCL 1,000 MG ONE (10:32)
[2020-08-28] MEDS ORDERED: ACETAMINOPHEN 650 MG SUPP PR PRN (12:30)
[2020-08-28] MEDS ORDERED: DOCUSATE SODIUM 100 MG CAP PO PRN (12:30)
[2020-08-28] MEDS ORDERED: SODIUM CHLORIDE 0.9% 1000ML 1,000 ML IV SCH (12:30)
[2020-08-28] MEDS ORDERED: ONDANSETRON HCL INJ 2MG/ML 2ML 2 MG/ML VIAL IV PRN (12:30)
[2020-08-28] MEDS ORDERED: DIPHENHYDRAMINE HCL INJ 50 MG/ML VIAL IV PRN (12:30)
[2020-08-28] MEDS ORDERED: HYDROCODONE/APAP 5MG-325MG TAB PO PRN (12:30)
[2020-08-28] MEDS ORDERED: FENTANYL CITRATE/PF 100MCG/2 ML INJ ONE ×2 (13:24→19:47)
[2020-08-28] MEDS ORDERED: ACETAMINOPHEN 1000 MG/100 ML 100 ML IV ONE (13:26)
[2020-08-28] MEDS ORDERED: LIDOCAINE HCL 2% LOCAL INJ 5 ML SDV VIAL INJ ONE (13:39)
[2020-08-28] MEDS ORDERED: GLYCOPYRROLATE INJ 0.2 MG/ML VIAL ONE (13:39)
[2020-08-28] MEDS ORDERED: SEVOFLURANE INHAL SOLN 250 ML PEN BTL ONE (13:39)
[2020-08-28] MEDS ORDERED: NEOSTIGMINE 1 MG/ML 10ML VIAL ONE (13:39)
[2020-08-28] MEDS ORDERED: ROCURONIUM BROMIDE 10 MG/ML 5ML VIAL IV ONE (13:39)
[2020-08-28] MEDS ORDERED: ONDANSETRON HCL INJ 2MG/ML 2ML 2 MG/ML VIAL ONE (13:39)
[2020-08-28] MEDS ORDERED: PROPOFOL IV EMULSION 10 MG/ML 20 ML VIAL ONE (13:39)
[2020-08-28 17:00] VITALS: BP 109/67
[2020-08-28] MEDS: ASPIRIN 325 MG TAB PO SCH (17:48)
[2020-08-28] MEDS: CELECOXIB 100 MG CAP PO SCH (17:49)
[2020-08-28] MEDS ORDERED: ACETAMINOPHEN 1000 MG/100 ML IV PRN (18:00)
[2020-08-28] MEDS: HYDROCODONE/APAP 7.5MG-325MG 1 EA TAB PO PRN (18:31)
[2020-08-28] MEDS ORDERED: MIDAZOLAM HCL 2 MG/2 ML VIAL ONE (19:47)
[2020-08-28] MEDS ORDERED: MORPHINE SULFATE INJ 10 MG/ML ONE (19:47)
[2020-08-28 20:18] VITALS: BP 102/66
[2020-08-28 20:27] VITALS: BP 102/66
[2020-08-28] MEDS ORDERED: ZOLPIDEM TARTRATE 5 MG TAB PO PRN (21:00)
[2020-08-28] MEDS: KETOROLAC TROMETHAMINE 30 MG/ML VIAL IV PRN (21:06)
[2020-08-28] MEDS: CEFAZOLIN SOD 1 GM/NS 50ML 50 ML IV SCH (21:06)
[2020-08-29] VITALS: BP 100/65
[2020-08-29 04:00] VITALS: BP 98/55
[2020-08-29 05:10] LABS: HEMATOCRIT 34.3 % (34.2-44.1); HEMOGLOBIN 11.4 g/dL (12.0-16.0)
[2020-08-29] MEDS: KETOROLAC TROMETHAMINE 30 MG/ML VIAL IV PRN (05:39)
[2020-08-29] MEDS: CEFAZOLIN SOD 1 GM/NS 50ML 50 ML IV SCH (05:46)
[2020-08-29] MEDS ORDERED: PANTOPRAZOLE SOD 40 MG TABEC PO SCH (07:30)
[2020-08-29 07:57] VITALS: BP 117/73
[2020-08-29] MEDS ORDERED: HYDROXYCHLOROQUINE SULFATE 200 MG TAB PO SCH (08:00)
[2020-08-29 08:56] VITALS: BP 117/73
[2020-08-29] MEDS ORDERED: ESCITALOPRAM OXALATE 10 MG TAB PO SCH (09:00)
[2020-08-29] MEDS ORDERED: GABAPENTIN 400 MG CAP PO SCH (09:00)
[2020-08-29] MEDS ORDERED: METAXALONE 800 MG TAB PO SCH (09:00)
[2020-08-29] MEDS: ASPIRIN 325 MG TAB PO SCH (09:10)
[2020-08-29] MEDS: CELECOXIB 100 MG CAP PO SCH (09:11)
[2020-08-29] MEDS ORDERED: ONDANSETRON HCL 4 MG ORAL DISINTEGRATING TAB PO PRN (10:30)
[2020-08-29] MEDS: HYDROCODONE/APAP 7.5MG-325MG 1 EA TAB PO PRN (10:58)
[2020-08-29] MEDS ORDERED: CELECOXIB 200 MG CAP PO SCH (17:00)
== END 2020-08-29 11:15 | disposition home or self-care (01) ==
LOC: OR 09:41 → PACU V 12:24 → MED/SURG 16:53
PROVIDERS: ADMIT Specialist; ATTEND Specialist
DX: M16.11 Unilateral primary osteoarthritis, right hip (principal); K21.9 Gastro-esophageal reflux disease without esophagitis; K22.711 Barrett's esophagus with high grade dysplasia; Z96.642 Presence of left artificial hip joint; D64.9 Anemia, unspecified; F41.9 Anxiety disorder, unspecified; G62.9 Polyneuropathy, unspecified; Z01.812 Encounter for preprocedural laboratory examination; Z20.822 Contact with and (suspected) exposure to COVID-19; Z79.891 Long term (current) use of opiate analgesic
CPT/HCPCS: 27130; 36415 ×2; 72170; 85014; 85018; 85025; 86850; 86900; 86920; 97110; 97116 ×2; 97161; G0378 ×2; J0131; J0171; J0690 ×2; J1100; J1885 ×2; J2001; J2250; J2270; J2405; J2704; J2710; J2795; J3010; J3370; J7030; J7040; S0164; U0002

== ENCOUNTER 2021-09-20 11:00 | Outpatient (RCR) | payer BC ==
[~2021-09-20 11:00] MED LIST changes: -ROPIVACAINE 246.25 MG, EPINEPHRINE HCL 1:1000 1ML 0.5 MG, CLONIDINE HCL 0.08 MG, KETORO... INJ ONE
== END 2021-09-21 ==
LOC: PT 11:00
PROVIDERS: ATTEND Neurological Surgery
DX: M47.896 Other spondylosis, lumbar region (principal)

== ENCOUNTER 2021-10-11 11:00 | Outpatient (RCR) | payer BC | END 2021-10-22 | LOC: PT 11:00 | PROVIDERS: ATTEND Neurological Surgery | DX: M47.896 Other spondylosis, lumbar region (principal) | CPT/HCPCS: 97139 ==

== ENCOUNTER → 2024-05-09 | Day surgery (SDC) | payer BC ==
[2024-05-06 11:03] LABS: BASOPHILS % 0.3 % (0.0-1.0); EOSINOPHILS # (AUTO) 0.2 (0.0-0.4); EOSINOPHILS % 3.4 % (0.0-6.0); HEMATOCRIT 42.9 % (34.2-44.1); HEMOGLOBIN 13.5 g/dL (12.0-16.0); LYMPHOCYTES # (AUTO) 2.1 (1.0-3.2); LYMPHOCYTES % 32.3 % (18.0-39.1); MEAN CORPUSCULAR HEMOGLOBIN 29.7 pg (28-32); MEAN CORPUSCULAR HGB CONC 31.5 g/dL (31-35); MEAN CORPUSCULAR VOLUME 94.5 fL (81-99); MONOCYTES # (AUTO) 0.8 (0.2-0.8); NEUTROPHILS # (AUTO) 3.3 (2.1-6.9); NEUTROPHILS % 51.7 % (38.7-80.0); PLATELET COUNT 244 x10e3/uL (140-360); RED BLOOD COUNT 4.54 x10e6/uL (3.6-5.1); RED CELL DISTRIBUTION WIDTH 13.2 % (11.7-14.4); WHITE BLOOD COUNT 6.41 x10e3/uL (4.8-10.8)
[~2024-05-09] MED LIST changes: +ACETAMINOPHEN 1000 MG/100 ML 100 ML IV ONE; +ACETAMINOPHEN 1000 MG/100 ML IV PRN; +ASPIRIN 325 MG TAB PO SCH; +ASPIRIN81 MG PO; +CELECOXIB 100 MG CAP PO SCH; +CYCLOBENZAPRINE10 MG PO; +DIPHENHYDRAMINE HCL INJ 50 MG/ML VIAL IV PRN; +DOCUSATE SODIUM 100 MG CAP PO PRN; +FAMOTIDINE 20 MG/2 ML VIAL IV ONE; +FENTANYL CITRATE/PF 100MCG/2 ML INJ ONE; +HYDROCODON-ACE1 EAC9 PO; +HYDROCODONE/APAP 5MG-325MG TAB PO PRN; +LACTATED RINGER'S 1,000 ML ONE; +LEVETIRACETAM500 MG PO; +LIDOCAINE HCL 2% LOCAL INJ 5 ML SDV VIAL INJ ONE; +LORATADINE10 MG PO; +LYRICA100 MG PO; +ONDANSETRON HCL INJ 2MG/ML 2ML 2 MG/ML VIAL IV PRN; +ONDANSETRON HCL INJ 2MG/ML 2ML 2 MG/ML VIAL ONE; +PROPOFOL IV EMULSION 10 MG/ML 20 ML VIAL ONE; +ROPIVACAINE/EPI/CLONIDINE/KET 50 ML SYRINGE INJ ONE; +ROSUVASTATIN CAL5 MG PO; +SEVOFLURANE INHAL SOLN 250 ML PEN BTL ONE; +SODIUM CHLORIDE 0.9% 1000ML 1,000 ML IV SCH; +VITAMIN D350 MC1 PO
[2024-05-09] MEDS: CELECOXIB 200 MG CAP ONE (07:51)
[2024-05-09] MEDS: GABAPENTIN 300 MG CAP ONE (07:51)
[2024-05-09] MEDS: DEXAMETHASONE SOD PHOS 10 MG/1 ML VIAL ONE (07:52)
[2024-05-09] MEDS: CEFAZOLIN SODIUM 2 GM ONE (07:52)
[2024-05-09] MEDS: LACTATED RINGER'S 1,000 ML ONE (07:53)
[2024-05-09] MEDS: HYDROCODONE/APAP 7.5MG-325MG 1 EA TAB PO PRN (12:00)
[2024-05-09 13:20] VITALS: BP 134/82; PULSE 82; RESP 18; O2SAT 96
== END | disposition home health service (06) ==
LOC: OR 07:26
PROVIDERS: ATTEND Specialist
DX: M17.11 Unilateral primary osteoarthritis, right knee (principal); M06.9 Rheumatoid arthritis, unspecified; G89.4 Chronic pain syndrome; D64.9 Anemia, unspecified; R01.1 Cardiac murmur, unspecified; E78.5 Hyperlipidemia, unspecified; M54.2 Cervicalgia; M54.9 Dorsalgia, unspecified; K21.9 Gastro-esophageal reflux disease without esophagitis; F41.9 Anxiety disorder, unspecified; F32.A Depression, unspecified; F17.290 Nicotine dependence, other tobacco product, uncomplicated; Z79.82 Long term (current) use of aspirin; Z79.899 Other long term (current) drug therapy; Z68.31 Body mass index [BMI] 31.0-31.9, adult
CPT/HCPCS: 27447; 36415; 73560; 85025; 86850; 86900; 93005; 97116; 97161; 97530; C1713 ×2; C1776 ×4; J0131; J1100; J2003; J2405; J2704; J3010; J7121

== ENCOUNTER → 2024-06-24 | Outpatient (RCR) | payer BC ==
[~2024-06-24] MED LIST changes: -ACETAMINOPHEN 1000 MG/100 ML 100 ML IV ONE; -ACETAMINOPHEN 1000 MG/100 ML IV PRN; -ASPIRIN 325 MG TAB PO SCH; -CELECOXIB 100 MG CAP PO SCH; -DIPHENHYDRAMINE HCL INJ 50 MG/ML VIAL IV PRN; -DOCUSATE SODIUM 100 MG CAP PO PRN; -FAMOTIDINE 20 MG/2 ML VIAL IV ONE; -FENTANYL CITRATE/PF 100MCG/2 ML INJ ONE; -HYDROCODONE/APAP 5MG-325MG TAB PO PRN; -LACTATED RINGER'S 1,000 ML ONE; -LIDOCAINE HCL 2% LOCAL INJ 5 ML SDV VIAL INJ ONE; -ONDANSETRON HCL INJ 2MG/ML 2ML 2 MG/ML VIAL IV PRN; -ONDANSETRON HCL INJ 2MG/ML 2ML 2 MG/ML VIAL ONE; -PROPOFOL IV EMULSION 10 MG/ML 20 ML VIAL ONE; -ROPIVACAINE/EPI/CLONIDINE/KET 50 ML SYRINGE INJ ONE; -SEVOFLURANE INHAL SOLN 250 ML PEN BTL ONE; -SODIUM CHLORIDE 0.9% 1000ML 1,000 ML IV SCH
== END ==
LOC: PT 05-26 09:20
PROVIDERS: ATTEND Physician Assistant
DX: M25.562 Pain in left knee (principal); M25.561 Pain in right knee; M13.862 Other specified arthritis, left knee; M13.861 Other specified arthritis, right knee; W19.XXXA Unspecified fall, initial encounter

== ENCOUNTER → 2024-07-22 | Outpatient (RCR) | payer BC | LOC: PT 06-27 12:08 | PROVIDERS: ATTEND Physician Assistant | DX: Z47.1 Aftercare following joint replacement surgery (principal); Z96.651 Presence of right artificial knee joint; M25.561 Pain in right knee; M25.661 Stiffness of right knee, not elsewhere classified; M62.81 Muscle weakness (generalized); R26.2 Difficulty in walking, not elsewhere classified ==

== ENCOUNTER 2024-08-04 09:44 | Outpatient (RCR) | payer BC | END 2024-08-22 | LOC: PT 09:44 | PROVIDERS: ATTEND Physician Assistant | DX: Z47.1 Aftercare following joint replacement surgery (principal); Z96.651 Presence of right artificial knee joint; M25.561 Pain in right knee; M25.661 Stiffness of right knee, not elsewhere classified; M62.81 Muscle weakness (generalized); R26.2 Difficulty in walking, not elsewhere classified ==